=== PATIENT | female | born 1930 | race Caucasian/White ===

== ENCOUNTER 2017-04-14 12:15 | Emergency (ER) | payer MEDICARE ==
[~2017-04-14] VITALS: Ht 162.6 cm; Wt 73.8 kg
[~2017-04-14 12:15] MED LIST: AMOXICILLIN500 MG PO; ASPIRIN ADULT L81 MG PO; COZAAR100 MG PO; GLIMEPIRIDE2 MG PO; INDERAL LA160 M1 OR; MAGNESIUM400 MG OR; NORVASC10 M1 PO; PROTONIX40 M2 PO; ZITHROMAX250 MG PO
[2017-04-14 12:30] VITALS: BP 150/71
== END 2017-04-14 13:25 | disposition home or self-care (01) ==
LOC: ED 12:15
DX: S90.31XA Contusion of right foot, initial encounter (principal); M79.671 Pain in right foot

== ENCOUNTER 2017-06-18 15:10 | Emergency (ER) | payer MEDICARE ==
[~2017-06-18] VITALS: Ht 162.6 cm; Wt 74.6 kg
[2017-06-18 15:56] LABS: HEMATOCRIT 41.6 % (37.0-47.0); HEMOGLOBIN 13.5 g/dl (12.0-16.0); IMMATURE GRANULOCYTES 0.2 % (0.0-1.0); MEAN CELL VOLUME 96.1 fL CALC (80.0-100.0); MEAN CORPUSCULAR HGB 31.2 pG CALC (26.0-32.0); MEAN CORPUSCULAR HGB CONC 32.5 g/L CALC (32.0-36.0); NEUT# 4.56 thou/uL (2.00-7.15); RED BLOOD COUNT 4.33 mill/uL (4.20-5.60); RED CELL DISTRI WIDTH 13.7 % (11.5-15.5)
[2017-06-18 16:12] LABS: PROTHROMBIN TIME 10.7 SECONDS (9.0-12.5)
[2017-06-18 16:13] LABS: ALBUMIN 4.2 g/dL (3.2-5.0); BILIRUBIN, TOTAL 0.5 mg/dL (0.0-1.4); CREATININE 1.2 mg/dL (0.5-1.0); POTASSIUM 4.8 mmol/l (3.5-5.1); TOTAL PROTEIN 7.8 g/dL (6.3-8.2)
[2017-06-18 17:20] VITALS: BP 106/54
== END 2017-06-18 17:27 | disposition home or self-care (01) ==
LOC: ED 15:10
PROVIDERS: Emergency Medicine
DX: R07.9 Chest pain, unspecified (principal); I10 Essential (primary) hypertension; I34.1 Nonrheumatic mitral (valve) prolapse; E11.9 Type 2 diabetes mellitus without complications